=== PATIENT | female | born 1990 | race American Indian/Alaskan Native ===

== ENCOUNTER 2018-11-25 01:00 | Outpatient (CLI) | payer MEDICAID ==
[2018-11-25] MEDS ORDERED: LACTATED RINGERS 1,000 ML IV ONE ×2 (01:34→02:11)
[2018-11-25 02:07] VITALS: BP 122/58
[2018-11-25] MEDS ORDERED: LACTATED RINGERS 1,000 ML ONE (02:12)
[2018-11-25 03:08] LABS: Bilirubin,Urine NEG (Negative); Blood,Urine NEG (Negative); Color,Urine Yellow (Yellow); Mucus,Urine 1+ /HPF; Protein,Urine <15 mg/dL mg/dL (Negative)
== END 2018-11-25 04:02 | disposition home or self-care (01) ==
LOC: TRG 01:00
PROVIDERS: ATTEND Obstetrics & Gynecology
DX: O26.893 Other specified pregnancy related conditions, third trimester (principal); R10.9 Unspecified abdominal pain; Z3A.32 32 weeks gestation of pregnancy; Z87.891 Personal history of nicotine dependence
CPT/HCPCS: 59025; 81001; 96360; J7120

== ENCOUNTER 2020-11-03 11:38 | Emergency (ER) | payer MEDICAID ==
[2020-11-03 12:05] VITALS: BP 110/69
--- NOTE | 2020-11-03 13:04 | XRay Report ---
CHEST 2 VIEWS INDICATION / CLINICAL INFORMATION: Cough and shortness of breath. COMPARISON: None available. FINDINGS: SUPPORT DEVICES: None. HEART / MEDIASTINUM: No significant abnormality. LUNGS / PLEURA: No significant pulmonary or pleural abnormality. No pneumothorax. ADDITIONAL FINDINGS: No significant additional findings. IMPRESSION: 1. No acute findings. Signer Name: Dru Calles MD Signed: 11/03/2020 12:59 PM Workstation Name: [id number]
--- NOTE | 2020-11-03 14:01 | Emergency Department Report ---
- General Chief Complaint: Chest Pain Stated Complaint: SOB/COUGH Time Seen by Provider: 11/03/20 13:52 Source: patient Mode of arrival: Ambulatory Limitations: No Limitations - History of Present Illness Initial Comments: Patient is a 30-year-old female presents emergency room with complaints of URI symptoms that began 4 days ago. She states that 4 days ago she took a COVID-19 test and reports it was negative. she has not received the COVID-19 vaccine. She has associated cough, shortness of breath, chills, headache, chest discomfort after coughing. She denies any fever, vomiting, diarrhea, abdominal pain, ear pain. No past medical history. No allergies medications. Last menstrual cycle early October. Patient reports that she went to urgent care just prior to be seeing in the emergency department today and she was prescribed azithromycin, albuterol, prednisone but she has not yet started taking it. She states that she just wanted to be checked out in the emergency room. - Related Data Allergies Allergy/AdvReac Type Severity Reaction Status Date / Time No Known Allergies Allergy Verified 11/03/20 12:00 ED Review of Systems ROS: Stated complaint: SOB/COUGH Other details as noted in HPI Comment: All other systems reviewed and negative ED Past Medical Hx - Past Medical History Hx Hypertension: No Hx Diabetes: No Hx Deep Vein Thrombosis: No Hx Renal Disease: No Hx Sickle Cell Disease: No Hx Seizures: No Hx Asthma: No Hx HIV: No - Surgical History Past Surgical History?: No - Social History Smoking Status: Current Some Day Smoker Substance Use Type: None ED Physical Exam - General Limitations: No Limitations General appearance: alert, in no apparent distress - Head Head exam: Present: atraumatic, normocephalic - Eye Eye exam: Present: normal appearance - ENT ENT exam: Present: mucous membranes moist - Respiratory Respiratory exam: Present: normal lung sounds bilaterally, wheezes (faint occasional wheeze bilaterally, good air movement ). Absent: respiratory distress, rales, rhonchi, stridor, chest wall tenderness, accessory muscle use, decreased breath sounds, prolonged expiratory - Cardiovascular Cardiovascular Exam: Present: regular rate, normal rhythm, normal heart sounds. Absent: systolic murmur, diastolic murmur, rubs, gallop - Neurological Exam Neurological exam: Present: alert, oriented X3 - Psychiatric Psychiatric exam: Present: normal affect, normal mood - Skin Skin exam: Present: warm, dry, intact ED Course Vital Signs 11/03/20 11/03/20 12:04 13:57 Temperature 98.7 F Pulse Rate 95 H 78 Respiratory 16 Rate Blood Pressure 110/69 O2 Sat by Pulse 94 96 Oximetry ED Medical Decision Making - EKG Data EKG shows normal: sinus rhythm, axis, intervals, QRS complexes, ST-T waves Rate: normal - Radiology Data Radiology results: report reviewed Ordering Physician: NAMRATA SCHAFFER MD Date of Service: 11/03/20 Procedure(s): XR chest routine 2V Accession Number(s): [id number] cc: ED MD SARBJIT Fluoro Time In Minutes: CHEST 2 VIEWS INDICATION / CLINICAL INFORMATION: Cough and shortness of breath. COMPARISON: None available. FINDINGS: SUPPORT DEVICES: None. HEART / MEDIASTINUM: No significant abnormality. LUNGS / PLEURA: No significant pulmonary or pleural abnormality. No pneumothorax. ADDITIONAL FINDINGS: No significant additional findings. IMPRESSION: 1. No acute findings. Signer Name: Dru Calles MD Signed: 11/03/2020 12:59 PM Workstation Name: [id number] Transcribed By: MAGGIE Dictated By: Dru Calles MD Electronically Authenticated By: Dru Calles MD Signed Date/Time: 11/03/20 125 DD/ 58 TD/TT: - Medical Decision Making Patient is a 30-year-old female presents emergency room with complaints of URI symptoms that began 4 days ago. She states that 4 days ago she took a COVID-19 test and reports it was negative. she has not received the COVID-19 vaccine. She has associated cough, shortness of breath, chills, headache, chest discomfort after coughing. She denies any fever, vomiting, diarrhea, abdominal pain, ear pain. No past medical history. No allergies medications. Last menstrual cycle early October. Patient reports that she went to urgent care just prior to be seeing in the emergency department today and she was prescribed azithromycin, albuterol, prednisone but she has not yet started taking it. She states that she just wanted to be checked out in the emergency room. Vitals are stable. On exam patient has an occasional faint mild wheeze, no significant wheezing, patient has good air movement, no prolonged expiratory phase, no respiratory distress, no accessory muscle use, no stridor, no rhonchi, no rales. Orders placed prior to my examination. Chest x-ray 1. No acute findings. EKG within normal limits. Symptoms and examination appear likely consistent with acute bronchitis. She was already prescribed the appropriate medications by the clinic she was at earlier today. advised pt Please take the medication you were prescribed by urgent care. May use the inhaler they prescribed every 4 hours as needed for shortness of breath or wheezing. Follow-up with a primary care doctor for reexamination. Increase your fluid intake. May take Tylenol as needed for fever, body aches, headache. Return to emergency room for any new or worsening symptoms. Critical care attestation.: If time is entered above; I have spent that time in minutes in the direct care of this critically ill patient, excluding procedure time. ED Disposition Clinical Impression: Acute bronchitis Qualifiers: Bronchitis organism: unspecified organism Qualified Code(s): J20.9 - Acute bronchitis, unspecified Disposition: 01 HOME / SELF CARE / HOMELESS Is pt being admited?: No Does the pt Need Aspirin: No Condition: Stable Instructions: Acute Bronchitis, Adult, Acute Bronchitis (ED) Additional Instructions: Please take the medication you were prescribed by urgent care. May use the inhaler they prescribed every 4 hours as needed for shortness of breath or wheezing. Follow-up with a primary care doctor for reexamination. Increase your fluid intake. May take Tylenol as needed for fever, body aches, headache. Return to emergency room for any new or worsening symptoms. Referrals: DEMETRICE SKELTON MD [Staff Physician] - 2-3 Days [facility] [Provider Group] - 2-3 Days Time of Disposition: 14:00 Print Language: CITIZEN OF [place]
--- NOTE | 2020-11-04 09:58 | Electrocardiograph Report ---
[facility] Test Date: 2020-11-03 Test Time: 12:10:14 Pat Name: ZACK GUTIÉRREZ Department: ED Room: ED Gender: F Senior Hr Manager: TYRA : 1990 Requested By: ED DOC Order Number: [id number] Reading MD: Kashif Solis Measurements Intervals [place] Rate: 85 P: 12 NE: 131 QRS: 13 QRSD: 82 T: 0 QT: 374 QTc: 444 Interpretive Statements Sinus rhythm NSST'S No previous ECG available for comparison Electronically Signed On 11-04-2020 9:58:41 EDT by Kashif Solis
== END 2020-11-03 14:10 | disposition home or self-care (01) ==
LOC: ED 11:38
DX: J20.9 Acute bronchitis, unspecified (principal); F17.200 Nicotine dependence, unspecified, uncomplicated
CPT/HCPCS: 71046; 93005; 99283